=== PATIENT | female | born 1985 | race Caucasian/White ===

== ENCOUNTER → 2021-08-12 13:40 | Outpatient (BNVA) | payer BC, SELFPAY | PROVIDERS: Family Provider Family Medicine; Visit Provider Obstetrics & Gynecology | DX: N87.1 Moderate cervical dysplasia (principal); Z32.02 Encounter for pregnancy test, result negative | CPT/HCPCS: 81025; 88305 ==

== ENCOUNTER → 2023-02-22 12:37 | Outpatient (BNVA) | payer OTHER, SELFPAY | PROVIDERS: Family Provider Family Medicine; PCP Family Medicine; Visit Provider Family Medicine | DX: Z51.81 Encounter for therapeutic drug level monitoring (principal); E03.9 Hypothyroidism, unspecified; R87.612 Low grade squamous intraepithelial lesion on cytologic smear of cervix (LGSIL); N87.1 Moderate cervical dysplasia | CPT/HCPCS: 80053; 84439; 84443; 85025 ==

== ENCOUNTER → 2023-03-09 12:46 | Outpatient (BNVA) | payer OTHER, SELFPAY | PROVIDERS: Family Provider Family Medicine; PCP Family Medicine; Visit Provider Family Medicine | DX: R87.612 Low grade squamous intraepithelial lesion on cytologic smear of cervix (LGSIL) (principal); Z01.419 Encounter for gynecological examination (general) (routine) without abnormal findings | CPT/HCPCS: 87624 ==

== ENCOUNTER → 2023-04-13 12:15 | Outpatient (BNVA) | payer OTHER, SELFPAY | PROVIDERS: Family Provider Family Medicine; PCP Family Medicine; Referring Provider Family Medicine; Visit Provider Obstetrics & Gynecology | DX: R87.612 Low grade squamous intraepithelial lesion on cytologic smear of cervix (LGSIL) (principal) | CPT/HCPCS: 87624; 88305 ==

== ENCOUNTER → 2023-04-28 10:21 | Outpatient (BNVA) | payer OTHER, SELFPAY | PROVIDERS: Family Provider Family Medicine; PCP Family Medicine; Visit Provider Obstetrics & Gynecology | DX: N92.6 Irregular menstruation, unspecified (principal) | CPT/HCPCS: 76830 ==

== ENCOUNTER 2023-05-26 10:07 | Day surgery (SDC) | payer BC, OTHER, SELFPAY ==
[2023-05-25 09:10] VITALS: BMI 19.1
[2023-05-26] VITALS (10 sets, daily range): BP systolic 100–132; BP diastolic 47–99; PULSE 64–84; RESP 15–17; TEMP 36.2–36.9; O2SAT 97–100; BMI 19.1
--- NOTE | 2023-05-26 05:45 | P.HP_ITS ---
Same Day Surgery H&P Indication for Procedure/HPI DATE OF PROCEDURE: May 26, 2023 CHIEF COMPLAINT/INDICATIONFOR SURGICAL PROCEDURE: abnormal uterine bleeding; high-grade lesion of cervix PREOP DIAGNOSIS: abnormal uterine bleeding; high-grade lesion of cervix PLANNED PROCEDURE: Operation Date: 05/26/23 11:40 Proposed Procedures p Cold-knife conization of cervix 74269,N87.1 Please add Hysteroscopy, endometrial sampling, possible endometrial polypectomy with Myosure [id number] to below procedure(Not Applicable) - Chaka Gonzalez MD s Hysteroscopy, endometrial sampling, possible endometrial polypectomy with Myosure [id number](Not Applicable) - Chaka Gonzalez MD 37 y.o.? History of abnormal cervical cytology Most recent endocervical cytology showed high-grade squamous intraepithelial lesion Also, periods recently began to be irregular Now scheduled for hysteroscopy, endometrial sampling, possible endometrial polypectomy;? 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 Does not have an naturopathic oncology provider. No pertinent past medical history Denies diabetes, asthma, hypertension, seizures, DVT/PE PCP: Dr. Darnell Surgical History (Updated 08/08/21 @ 19:12 by Porfirio Saunders MD) History of surgery on 2015--for removal of displaced Nexplanon S/P breast augmentation Performed in [place] in 2009 S/P section 07/30/2019, emergent for prolapsed umbilical cord performed by Dr. Darnell at [facility] [place] Family History (Updated 08/05/21 @ 13:05 by Meredith Ramsey RN) Breast cancer Mother Diagnosed at age 57, of same at age 58. Adopted person Family/Other Patient was adopted and does not know all details of her biological family history. Social History Smoking and tobacco status: never smoked Alcohol intake: never Substance/Drug Use: never Pertinent Exam Findings alert, oriented x 3, clear to auscultation bilaterally and regular rate & rhythm Recommendations Surgery/Procedure today Coding Level of Care Code Acute Code for Chg Fwd Diagnoses Time Spent (min) 20
[2023-05-26] MEDS: sodium chloride 0.9% 1,000 ML 30 ML IV (11:01)
--- NOTE | 2023-05-26 11:15 | P.ANESASSM_ITS ---
Pre-Anesthetic Assessment Height/Weight: Height 1.6 m Weight 48.988 kg Temp Pulse Resp BP Pulse Ox O2 Del Method 98.5 F 64 16 123/74 100 Room Air 05/26/23 10:45 05/26/23 10:45 05/26/23 10:45 05/26/23 10:45 05/26/23 10:45 05/26/23 10:46 Preop Diagnosis: abnormal uterine bleeding; high-grade lesion of cervix Operation Date: 05/26/23 11:40 Proposed Procedures p Cold-knife conization of cervix 24609,N87.1 Please add Hysteroscopy, endometrial sampling, possible endometrial polypectomy with Myosure [id number] to b elow procedure(Not Applicable) - Chaka Gonzalez MD s Hysteroscopy, endometrial sampling, possible endometrial polypectomy with Myosure [id number](Not Applicable) - Chaka Gonzalez MD Familial anesthetic complications: none Was Beta Guido taken within 24 hours: N/A Was Clonidine taken within 24 hours: N/A Last intake: Intake Last Liquid Date 05/25/23 Last Liquid Time 23:00 Last Solid Date 05/25/23 Last Solid Time 23:00 Social No alcohol and No tobacco Exam alert, oriented x 3, clear to auscultation bilaterally and regular rate & rhythm Airway Submandibular: within normal limits Cervical ROM: within normal limits Mallampati: Class II Dentition: full Neuropsych Anxiety and Depression Anesthetic Plan ASA status: 2 Anesthesia: General Medications/Allergies Home Medications Medication Instructions Recorded Confirmed Last Taken Type levothyroxine 25 mcg tablet 25 mcg PO DAILY #90 tabs 01/26/23 05/25/23 05/24/23 Rx escitalopram oxalate 10 mg tablet 10 mg PO DAILY #30 tabs 03/23/23 05/25/23 05/24/23 Rx Allergies Allergy/AdvReac Type Severity Reaction Status Date / Time azithromycin AdvReac Nausea, Verified 05/10/23 11:14 [From Zithromax Z-Kurt] abdominal cramps clomipramine AdvReac Nausea Verified 05/10/23 11:14 Current Medications Generic Name Dose Route Start Last Admin Trade Name Freq PRN Reason Stop Dose Admin Sodium Chloride 1,000 mls @ 30 mls/hr 05/26/23 10:30 05/26/23 11:03 Sodium Chloride 0.9% IV 05/27/23 10:29 30 mls/hr .Q24H LEW Infusion PFSH Anesthesia Medical History NERY II (cervical intraepithelial neoplasia II) NERY-2/3 first diagnosed in 2018 Idiopathic hypothyroidism Diagnosed in 2007 and has been on medication since then managed by her primary care provider. Does not have an animal assisted therapist. No pertinent past medical history Denies diabetes, asthma, hypertension, seizures, DVT/PE PCP: Dr. Darnell Surgical History History of surgery on 2015--for removal of displaced Nexplanon S/P breast augmentation Performed in [place] in 2009 S/P section 07/30/2019, emergent for prolapsed umbilical cord performed by Dr. Darnell [place] [facility] [place] Family History Mother Breast cancer Diagnosed at age 57, of same at age 58. Family/Other Adopted person Patient was adopted and does not know all details of her biological family history. Social History Smoking and tobacco status: never smoked Alcohol intake: never Substance/Drug Use: never Female Reproductive History Date of last menstrual period: 05/25/23 Data Anesthesia Cardiac Studies: No Data to Display
[2023-05-26 11:24] LABS: OR HCG Qualitative Urine Negative (Negative)
--- NOTE | 2023-05-26 12:03 | W.PM.OPSUD ---
Surgery/Procedure H&P Update DATE OF PROCEDURE: May 26, 2023 DATE H&P PERFORMED: 05/26/23 H&P UPDATE INFORMATION: I have reviewed H&P completed within last 30 days, I have examined patient prior to procedure and No changes to prior documentation PREOP DIAGNOSIS: abnormal uterine bleeding; high-grade lesion of cervix PLANNED PROCEDURE: Operation Date: 05/26/23 11:40 Proposed Procedures p Cold-knife conization of cervix 07264,N87.1 Please add Hysteroscopy, endometrial sampling, possible endometrial polypectomy with Myosure [id number] to below procedure(Not Applicable) - Chaka Gonzalez MD s Hysteroscopy, endometrial sampling, possible endometrial polypectomy with Myosure [id number](Not Applicable) - Chaka Gonzalez MD
[2023-05-26] MEDS: vasopressin 20 unit/mL INJ INJECTION ×2 (13:00→13:01)
--- NOTE | 2023-05-26 15:10 | PM.OP ---
Operative Report Date of procedure: May 26, 2023 Pre-op diagnosis: abnormal uterine bleeding cervical dysplasia Post-op diagnosis: same Post-op findings: uterus sounded to 8 cm Endometrial cavity normal Minimal endometrial tissue No polyps or fibroids Procedure done: hysteroscopy Curettage of uterus Conization of cervix Implants: none Specimens removed/disposition: endometrial tissue cervical cone Surgeon: Chaka Gonzalez MD Anesthesia: General Estimated blood loss (mL): 25 Complications: none Condition: stable Disposition: PACU Brief History: 37 y.o.? History of abnormal cervical cytology Most recent endocervical cytology showed high-grade squamous intraepithelial lesion Also, periods recently began to be irregular scheduled for hysteroscopy, endometrial sampling, possible endometrial polypectomy;? conization of cervix Procedure: Informed consent signed. Patient was taken to the operating room.? Anesthesia was induced.? Patient was placed in dorsolithotomy position, prepped and draped for hysteroscopy.? A bivalve speculum was placed in the vagina.? The anterior lip of the cervix was grasped with a sharp-toothed tenaculum.? The cervix was serially dilated with Hegar dilators.? A hysteroscope was placed into the endometrial cavity.? The endometrial cavity was seen to be normal.? There were no polyps or fibroids.? There was small amount of endometrial tissue.? The hysteroscope was then removed.? Endometrial curettage was done with a sharp curette.? Endometrial tissue was sent to pathology.?? The cervix was then infiltrated at the cervicovaginal junction with 20 U of vasopressin to decrease bleeding.? The cold-knife conization was then performed with a scalpel, to a depth of approximately 5-7 mm.? Multiple bleeding points were controlled with 2-O chromic sutures, assuring at the same time an open cervical os.? Pressure was also applied.? Excellent hemostasis was noted.? All instruments were then removed.? The patient was placed supine, awakened, and taken to the recovery room. Postoperative condition:? stable EBL:? 25 cc Complications:? none Sponge and instrument counts were correct x two
--- NOTE | 2023-05-26 15:23 | ANE.PACU2 ---
Inpatient post-anesthesia follow up: Airway intact: Yes Vital signs: Temperature 97.2 F Pulse Rate 66 Respiratory Rate 17 Blood Pressure 104/47 Pulse Oximetry 99 Oxygen Delivery Me thod Room Air Oxygen Flow Rate 6 Fraction of Inspir ed Oxygen Hydration adequate: Yes Nausea and vomiting: No Pain level: 2 Mental status: Baseline
== END 2023-05-26 15:10 | disposition home or self-care (01) ==
PROVIDERS: PCP Family Medicine; Visit Provider Obstetrics & Gynecology
PROC: 0UB97ZZ Excision of Uterus, Via Natural or Artificial Opening (ICD-10-PCS; CPT 57520; principal; 2023-05-26 11:30)
PROC: 0UDB8ZZ Extraction of Endometrium, Via Natural or Artificial Opening Endoscopic (ICD-10-PCS; CPT 58558; 2023-05-26 11:30)
DX: N93.9 Abnormal uterine and vaginal bleeding, unspecified (principal); N87.1 Moderate cervical dysplasia
CPT/HCPCS: 57520; 58558; 81025; 84703; 88305; 88307; J1100; J1885; J2405; J2704; J3010; J3490; J7030

== ENCOUNTER → 2023-06-01 09:13 | Outpatient (BNVA) | payer OTHER, SELFPAY | PROVIDERS: Family Provider Family Medicine; PCP Family Medicine; Visit Provider Obstetrics & Gynecology | DX: R30.0 Dysuria (principal) | CPT/HCPCS: 81000 ==

== ENCOUNTER → 2023-06-23 15:30 | Outpatient (BNVA) | payer OTHER, BC, SELFPAY | PROVIDERS: Family Provider Family Medicine; PCP Family Medicine; Visit Provider Obstetrics & Gynecology | DX: N92.6 Irregular menstruation, unspecified (principal); N93.9 Abnormal uterine and vaginal bleeding, unspecified | CPT/HCPCS: 85025 ==

== ENCOUNTER → 2023-12-07 13:50 | Outpatient (BNVA) | payer OTHER, BC, SELFPAY | PROVIDERS: Family Provider Family Medicine; Visit Provider Obstetrics & Gynecology | DX: Z01.419 Encounter for gynecological examination (general) (routine) without abnormal findings (principal) | CPT/HCPCS: 87624 ==

== ENCOUNTER → 2024-06-11 11:00 | Outpatient (BNVA) | payer OTHER, BC, SELFPAY | PROVIDERS: Family Provider Family Medicine; Visit Provider Obstetrics & Gynecology | DX: Z01.419 Encounter for gynecological examination (general) (routine) without abnormal findings (principal); N93.9 Abnormal uterine and vaginal bleeding, unspecified | CPT/HCPCS: 81025; 87624 ==

== ENCOUNTER 2024-08-02 21:34 | Emergency (ER) | payer OTHER, SELFPAY ==
[2024-08-02 21:36] VITALS: BP 115/78; PULSE 96; RESP 16; O2SAT 96; BMI 24.0
--- NOTE | 2024-08-02 22:11 | ED_ITS ---
HPI - Skin/Abscess/Foreign Bdy General: Chief complaint: Skin/Abscess/Foreign Body Stated complaint: Rash Time Seen by Provider: 08/02/24 21:45 Source: patient Mode of arrival: ambulatory Limitations: no limitations History of Present Illness: 38yo female here for persistent pruritic rash that has been present for approximately 2 months. Patient states she has been evaluated multiple times and treated with multiple medications, but nothing seems to be helping. States that she does have an appointment with dermatology early next month, but is not able to take the itching. Patient's reports that she does take hydroxyzine, Benadryl, and famotidine at night to help with her itching. States that she has been using topical medications to help with the itching during the day. She states that it is now spread to her entire body. She denies fever, chills, body aches, cough, congestion, other family members with the rash, previous incidences of a rash such as this, any other concerns at this time. Patient does state that her children do sleep in her bed and have not yet developed a rash nor has her significant other. She does indicate that the rash started a few days after receiving her influenza vaccination, which she has never had before. She also reports that the rash does seem to worsen after eating eggs. Associated symptoms: Deny chills or fever(s) Related Data Home Medications Medication Instructions Recorded Confirmed multivitamin with iron (Daily 1 tab PO DAILY 06/07/23 07/27/24 Vites/Iron tablet) etonogestrel 68 mg subdermal 1 implant subdermal .5 YEARS 07/19/23 07/27/24 implant (Nexplanon) Previous Rx's Medication Instructions Recorded diclofenac sodium 1 % topical gel 4 g topical QID #100 grams 03/16/24 (Voltaren Arthritis Pain) levothyroxine 25 mcg tablet 25 mcg PO DAILY #90 tabs 05/15/24 escitalopram oxalate 10 mg tablet 10 mg PO DAILY #30 tabs 05/21/24 permethrin 5 % topical cream 1 applic topical Q7D 2 doses #60 06/18/24 grams betamethasone valerate 0.1 % lotion 1 applic topical BID #60 mL 07/09/24 ivermectin 3 mg tablet 12,000 mcg PO DAILY 2 doses #8 tabs 07/27/24 prednisone 20 mg tablet 60 mg (3 x 20 mg) PO DAILY 5 days 07/27/24 #15 tabs spinosad 0.9 % topical suspension 120 ml topical Q7D 2 doses #120 mL 07/27/24 hydroxyzine HCl 25 mg tablet 25 mg PO TID PRN itching #30 tabs 07/30/24 prednisone 20 mg tablet See Rx Instructions .Route 08/02/24 .COMPLEX #14 tabs Allergies Allergy/AdvReac Type Severity Reaction Status Date / Time azithromycin AdvReac Nausea, Verified 07/27/24 14:02 [From Zithromax Z-Kurt] abdominal cramps clomipramine AdvReac Nausea Verified 07/27/24 14:02 Review of Systems Const: Denies: fever(s) or chills ENMT: Denies: throat pain Resp: Denies: dyspnea Skin/Breast: Reports: rash (Generalized) PFSH ED PFSH: Medical History No pertinent past medical history Denies diabetes, asthma, hypertension, seizures, DVT/PE PCP: Dr. Darnell NERY II (cervical intraepithelial neoplasia II) NERY-2/3 first diagnosed in 2018 Idiopathic hypothyroidism Diagnosed in 2007 and has been on medication since then managed by her primary care provider. Does not have an ultrasound technician. Surgical History History of conization of cervix 2022 - Gonzalez - NERY S/P section 07/30/2019, emergent for prolapsed umbilical cord performed by Dr. Darnell at [facility] [place] S/P breast augmentation Performed in [place] in 2009 History of surgery on arm 2016--for removal of displaced Nexplanon Family History Mother Breast cancer Diagnosed at age 57, of same at age 58. Family/Other Adopted person Patient was adopted and does not know all details of her biological family history. Sister Von Willebrand disease Social History Smoking and tobacco/nicotine status: unknown if used tobacco/nicotine Alcohol intake: never Substance/Drug Use: never Physical Exam Const: COMMON NORMALS: no acute distress and patient oriented x3 GENERAL APPEARANCE: cooperative ORIENTATION/CONSCIOUSNESS: Yes awake OTHER: Patient is sitting upright on the stretcher no acute distress. She is able to give history with no difficulty. She is interactive with exam appropriately. She is noted to be scratching her arms frequently throughout the exam. HENMT: COMMON NORMALS: normocephalic HEAD & SCALP: normocephalic Chest: CHEST: Yes Symmetrical chest wall rise Resp: COMMON NORMALS: normal respiratory effort Extremity: COMMON NORMALS: full ROM Neuro: COMMON NORMALS: patient oriented x3 Skin: RASHES: rashes noted (Faint generalized maculopapular rash. Multiple areas of excoriation noted) Course Vital Signs: Vital signs: Vital Signs Pulse Rate 65 08/02/24 22:30 Respiratory Rate 16 08/02/24 22:30 Blood Pressure 115/78 08/02/24 21:36 Pulse Oximetry 97 08/02/24 22:30 Oxygen Delivery Me thod Room Air 08/02/24 21:36 MDM - Skin/Abscess/Foreign Bdy Medicial Decision Making 38yo female here for evaluation of a rash that has been present for the past 2 months. Patient has been seen multiple times in the past month and a half for the rash and has had multiple different treatments with no improvement. She has been treated for scabies, contact dermatitis, insect bites, and again scabies. She reports that she recently finished a steroid a few days ago and thought that it may have been helping some. She does have an appointment with dermatology early next month. Patient denies fever, chills, bodies, recent illness, other family members with the rash, previous incidences of a rash like this, any other concerns at this time. Patient is nontoxic in appearance. Vital signs are stable. Chart review reveals patient was initially evaluated on 06/18 and had subsequent visits on 06/27, 07/09, and 07/27. Discussed with patient's difficulty in determining the etiology of the rash, especially after multiple medication regimens have been used. No color change with Rosenthal lamp exam, not likely to be fungal in nature. Patient did have outpatient labs drawn earlier today with no CBC abnormalities and no indication of hepatic abnormalities that could account for the rash. Advised that we would proceed with steroid injection in the emergency department and a prescription of oral steroids. Encourage patient to apply a chilled lotion numerous times throughout the day to help with itching. Recommend she make every effort to keep her previously scheduled appointment with dermatology early next month. Advised return to the emergency department if any rapid worsening symptoms, onset of fever associated with worsening, and as needed. Patient states understanding has no further questions or concerns at this time. Lab Data I reviewed the patient's lab results. Outpatient labs obtained earlier today. No CBC abnormalities and no hepatic abnormalities noted that could account for the rash No radiology studies performed this visit Discharge Plan Discharge Patient Disposition: Home Clinical Impression: Pruritic rash Condition: Stable Prescriptions: New prednisone 20 mg tablet See Rx Instructions .ROUTE .COMPLEX Qty: 14 0RF Rx Instructions: 20 mg orally BID X 4 days, then 10mg orally BID x 4 days, then 10mg orally daily x 4 days No Action permethrin 5 % cream 1 applic topical Q7D Qty: 60 1RF Rx Instructions: apply second treatment 7 days after first treatment if live lice remain betamethasone valerate 0.1 % lotion 1 applic topical BID Qty: 60 1RF ivermectin 3 mg tablet 12,000 mcg PO DAILY Qty: 8 0RF prednisone 20 mg tablet 60 mg PO DAILY 5 Days Qty: 15 0RF spinosad 0.9 % suspension 120 ml topical Q7D Qty: 120 0RF multivitamin with iron [Daily Vites/Iron] Tablet 1 tab PO DAILY Nexplanon 68 mg implant 1 implant subdermal .5 YEARS diclofenac sodium [Voltaren Arthritis Pain] 1 % gel 4 g topical QID Qty: 100 0RF Rx Instructions: apply to single knee, ankle, foot; for foot includes sole/toes/top of foot levothyroxine 25 mcg tablet 25 mcg PO DAILY Qty: 90 2RF escitalopram oxalate 10 mg tablet 10 mg PO DAILY Qty: 30 6RF hydroxyzine HCl 25 mg tablet 25 mg PO TID PRN (Reason: itching) Qty: 30 3RF Discharge Orders: Discharge ED (Routine); Ordered 08/02/24 Ordered By: Juan Timmons Referrals: Melecio Darnell MD [Primary Care Provider] - Discharge Diet: Usual diet Discharge Activity: Resume usual activity Patient Instructions: Rash - Nonspecific Activity Restrictions/Additional Instructions: We are unable to determine the cause of the rash tonight New did receive an injection of steroids and a prescription of steroids has been sent to your pharmacy Apply chilled lotion to help with the itching and inflammation. You may repeat the lotion numerous times throughout the day Please keep your previously scheduled appointment with dermatology as we do need their assistance in identifying and treating this rash Return to the emergency department if any rapid worsening symptoms, onset of fever associated with worsening, and as needed Coding Level of Care Code ED Chemical Process Analyst for Chris Jaquez
[2024-08-02 22:30] VITALS: PULSE 65; RESP 16; O2SAT 97
[2024-08-02] MEDS: methylPREDNISolone (DEPO) 40 mg/mL INJ 1 mL IM (22:47)
== END 2024-08-02 22:52 | disposition home or self-care (01) ==
PROVIDERS: Emergency Provider Nurse Practitioner; PCP Family Medicine
DX: L29.9 Pruritus, unspecified (principal)
CPT/HCPCS: 80053; 85025; 85651; 86003; 86008; 86141; 96372; 99284; J1010

== ENCOUNTER 2024-10-08 15:16 | Outpatient (RCR) | payer OTHER, SELFPAY | END 2024-10-12 23:59 | disposition home or self-care (01) | LOC: SPT 15:16 | PROVIDERS: Visit Provider Orthopaedic Surgery | DX: Z47.89 Encounter for other orthopedic aftercare (principal) | CPT/HCPCS: 97161 ==

== ENCOUNTER 2024-10-13 06:00 | Outpatient (RCR) | payer OTHER, SELFPAY | END 2024-11-09 23:59 | disposition home or self-care (01) | LOC: SPT 06:00 | PROVIDERS: Visit Provider Orthopaedic Surgery | DX: Z47.89 Encounter for other orthopedic aftercare (principal) | CPT/HCPCS: 97110; 97140 ==

== ENCOUNTER → 2024-12-10 12:32 | Outpatient (BNVA) | payer OTHER, MEDICAID, SELFPAY | PROVIDERS: Family Provider Family Medicine; PCP Family Medicine; Visit Provider Obstetrics & Gynecology | DX: N87.1 Moderate cervical dysplasia (principal) | CPT/HCPCS: 88175 ==

== ENCOUNTER → 2025-04-01 13:22 | Outpatient (BNVA) | payer OTHER, MEDICAID, SELFPAY | PROVIDERS: Family Provider Family Medicine; PCP Family Medicine; Visit Provider Family Medicine | DX: E03.9 Hypothyroidism, unspecified (principal); R87.619 Unspecified abnormal cytological findings in specimens from cervix uteri; Z00.00 Encounter for general adult medical examination without abnormal findings; Z51.81 Encounter for therapeutic drug level monitoring; E55.9 Vitamin D deficiency, unspecified | CPT/HCPCS: 80053; 82306; 84439; 84443; 85025; 87624 ==

== ENCOUNTER 2025-05-27 08:35 | Outpatient (CLI) | payer MEDICAID, SELFPAY ==
--- NOTE | 2025-05-27 08:46 | MM_ITS ---
WS: [id number] BILATERAL SCREENING DIGITAL BREAST MAMMOGRAPHY WITH VEE DISPLACEMENT VIEWS. CAD PERFORMED. HISTORY: ANNUAL SCREENINNG COMPARISON: None available. Bilateral craniocaudal and mediolateral oblique views are performed with tomosynthesis and SM. Vee displacement views in CC and MLO projection also performed. Breasts composition: There are scattered areas of fibroglandular density. Retropectoral implants are intact. No suspicious mass or calcification. No capsular contraction of the implants. There are few benign scattered calcifications. MM/MM scr BI tomosynthesis [id number] IMPRESSION: BI-RADS: 2 - Benign FOLLOW-UP: 1 Year Follow-up
== END 2025-05-27 08:36 | disposition home or self-care (01) ==
LOC: RAD 08:38
PROVIDERS: PCP Family Medicine; Visit Provider Internal Medicine
DX: Z12.31 Encounter for screening mammogram for malignant neoplasm of breast (principal)
CPT/HCPCS: 77063; 77067